=== PATIENT | female | born 1975 | race Caucasian/White ===

== ENCOUNTER 2016-09-21 16:01 | Emergency (ER) | payer OTHER ==
[2016-09-21] MEDS ORDERED: FENTANYL CITRATE INJ/PF 100 MCG/2 ML AMPUL IV ONE (16:24)
[2016-09-21] MEDS ORDERED: PROPOFOL INJ 200 MG/20 ML VIAL IV ONE (16:41)
[2016-09-21] MEDS ORDERED: NORMAL SALINE 1000 ML 1,000 ML IV PRN (16:43)
[2016-09-21] MEDS ORDERED: PROPOFOL 100 ML IV ONE (16:51)
--- NOTE | 2016-09-21 17:19 | ER Document Report ---
ED Seizure - General Chief Complaint: Probable Seizure Stated Complaint: POSSIBLE SEIZURE Notes: Patient is a 41-year-old female, no past medical history, presents after a 1 minute generalized tonic-clonic seizure witnessed by her son. She had a brief postictal period where she was crying. She is complaining of left shoulder pain and feels like it is out of its socket. She denies numbness, tingling, head injury, new medications, fevers, neck stiffness, ataxia or any other injuries. - Related Data Allergies/Adverse Reactions: No Known Allergies Allergy (Verified 04/03/16 09:40) Past Medical History - Social History Smoking Status: Current Every Day Smoker Family History: Reviewed & Not Pertinent - Past Medical History Cardiac Medical History: Denies: Hx Coronary Artery Disease, Hx Heart Attack, Hx Hypertension Pulmonary Medical History: Denies: Hx Asthma, Hx Bronchitis, Hx COPD, Hx Pneumonia Neurological Medical History: Denies: Hx Cerebrovascular Accident, Hx Seizures GI Medical History: Denies: Hx Hepatitis, Hx Hiatal Hernia, Hx Ulcer Musculoskeltal Medical History: Denies Hx Arthritis Infectious Medical History: Denies: Hx Hepatitis Past Surgical History: Denies: Hx Hysterectomy, Hx Mastectomy, Hx Open Heart Surgery, Hx Pacemaker - Immunizations Hx Diphtheria, Pertussis, Tetanus Vaccination: Yes Review of Systems - Review of Systems Notes: REVIEW OF SYSTEMS: CONSTITUTIONAL: Denies fever, chills, or sweats. Denies recent illness. EENT: Denies eye, ear, throat, or mouth pain or symptoms. Denies nasal or sinus congestion. CARDIOVASCULAR: Denies chest pain, syncope. RESPIRATORY: Denies cough, cold, or chest congestion. Denies shortness of breath, difficulty breathing, or wheezing. GASTROINTESTINAL: Denies abdominal pain. Denies nausea, vomiting, or diarrhea. Denies constipation. GENITOURINARY: Denies difficulty urinating, painful urination, burning, frequency, or blood in urine. MUSCULOSKELETAL: +left shoulder pain SKIN: Denies rash or skin lesions. HEMATOLOGIC: Denies easy bruising or bleeding. LYMPHATIC: Denies swollen, enlarged glands. NEUROLOGICAL: +seizure. Denies altered mental status or loss of consciousness. Denies headache. Denies weakness or paralysis or loss of use of either side. Denies problems with gait or speech. Denies sensory or motor loss. PSYCHIATRIC: Denies anxiety or stress or depression. ALL OTHER SYSTEMS REVIEWED AND NEGATIVE. Physical Exam - Vital signs Vitals: Pulse Resp BP Pulse Ox 78 21 H 106/69 98 09/21/16 16:50 09/21/16 16:50 09/21/16 16:50 09/21/16 16:50 BP 135/80, HR 93, Pulse Ox 97%, RR 16 Interpretation: Normal - Notes Notes: PHYSICAL EXAMINATION: GENERAL: Well-appearing, well-nourished. In moderate distress. HEAD: Atraumatic, normocephalic. EYES: Pupils equal round and reactive to light, extraocular movements intact, sclera anicteric, conjunctiva are normal. ENT: nares patent, oropharynx clear without exudates. Moist mucous membranes. NECK: Normal range of motion, supple without lymphadenopathy LUNGS: Breath sounds clear to auscultation bilaterally and equal. No wheezes rales or rhonchi. HEART: Regular rate and rhythm without murmurs ABDOMEN: Soft, nontender, normoactive bowel sounds. No guarding, no rebound. No masses appreciated. EXTREMITIES: Unable to move left shoulder. Left humerus out of glenoid fossa. N /V intact distally. NEUROLOGICAL: Cranial nerves grossly intact. Normal speech, normal gait. Normal sensory, motor, and reflex exams. PSYCH: Normal mood, normal affect. SKIN: Warm, Dry, normal turgor, no rashes or lesions noted. Course - Re-evaluation Re-evalutation: Left posterior shoulder dislocation reduced after procedural sedation using traction countertraction. Neurovascular intact distally. CT head does not show any acute abnormalities and rest of labs were unremarkable to explain acute seizure. Instructed the patient to not drive until cleared by the neurologist. She will follow up with neurology and orthopedics. She will keep her arm in the shoulder immobilizer until seen by orthopedics. - Vital Signs Vital signs: Temp Pulse Resp BP Pulse Ox 75 18 118/64 100 09/21/16 17:35 09/21/16 17:35 09/21/16 17:35 09/21/16 17:35 - Laboratory Result Diagrams: 09/21/16 18:05 09/21/16 18:05 Laboratory results interpreted by me: 09/21/16 09/21/16 18:05 18:05 WBC 14.1 H Seg Neutrophils % 90.4 H Lymphocytes % 5.7 L Absolute Neutrophils 12.7 H Chloride 108 H Procedures - Conscious Sedation Conscious sedation Consent obtained: Yes Indication: Shoulder dislocation. Pt in pain. Last meal: 08:00 Prior complications: Other - None Normal healthy pt.: P1. - ASA Classification Airway Evaluation: Normal anatomy Mallampati Classification: Class 1 Medications administered: Fentanyl, Diprivan Reversal agents: None I personally performed/intraservice time: Sedation, Procedure, 30 min or less Complications: No - Immobilization Left Shoulder Time completed: 17:19 Pre-Proc Neuro Vasc Exam: Normal Immobilizer type: Shoulder immobilizer Performed by: Provider Post-Proc Neuro Vasc Exam: Normal Alignment checked and good: Yes - Joint Reduction/Fracture Care Left Shoulder Time completed: 17:20 Consent obtained: Yes Conscious sedation: Yes Pre-procedure NV exam: Yes - Intact Manipulation comment: Traction-countertraction Post-procedure NV exam: Yes Post-reduction x-ray: Joint reduced Reduction attempts: 1 Complications: No Discharge - Discharge Clinical Impression: Seizure Dislocation of left shoulder joint Qualifiers: Encounter type: initial encounter Qualified Code(s): S43.005A - Unspecified dislocation of left shoulder joint, initial encounter Condition: Good Disposition: HOME, SELF-CARE Additional Instructions: Shoulder Dislocation You've had a shoulder dislocation. Even after the shoulder is put back in place, careful care is needed to prevent further problems. As the shoulder dislocated, injury to the joint itself occurred. This must be allowed to heal. The usual treatment is a shoulder immobilizing sling. If this is your first dislocation, it must be left in place until the doctor allows you to remove it. This is important. Ice pack the shoulder frequently. One of the most important aspects of care for a shoulder dislocation is mobility exercises and strengthening exercises. You'll start these when it's safe to start moving the shoulder joint. Be sure to keep your follow-up appointments. If you develop numbness in the arm or hand, weakness of the hand muscles, arm swelling, or arm discoloration, call the doctor or return immediately. Seizure You have had a seizure. Seizure disorders (epilepsy) of one sort or another affect about one out of 50 people. The seizure occurs because of abnormal electrical activity in the brain. Seizures may be due to drugs and alcohol, strokes, brain injury, or infection. In the most common form of epilepsy, no cause can be found. You will require further evaluation to determine the cause of your seizure, and to determine whether anti-seizure medication is required. This follow-up testing is important, so please call us if you encounter problems with scheduling of tests or appointments. YOU SHOULD NOT DRIVE until released to do so by your physician. The law requires that seizures be reported to the crew car driver's license bureau--a seizure while driving could be catastrophic. Call the doctor if seizures recur, or if you develop new symptoms such as fever, severe headache, stiff neck, confusion or increasing sleepiness, weakness or numbness, or visual problems. Referrals: DENISE MCKEON MD [Primary Care Provider] - Follow up as needed LURDES GANNON MD [ACTIVE STAFF] - Follow up as needed ALISSA ACUNA MD [ACTIVE STAFF] - Follow up as needed
[2016-09-21 18:17] LABS: ABSOLUTE LYMPHOCYTES (AUTO) 0.8 10^3/uL (0.5-4.7); ABSOLUTE MONOCYTES (AUTO) 0.5 10^3/uL (0.1-1.4); ABSOLUTE NEUT (AUTO) 12.7 10^3/uL (1.7-8.2); BASOPHILS % (AUTO) 0.2 % (0-2); EOSINOPHILS % (AUTO) 0.3 % (0-6); HEMATOCRIT 39.7 % (36.0-47.0); HEMOGLOBIN 13.5 g/dL (12.0-15.5); HGB HCT DIFFERENCE 0.8; LYMPHOCYTES % (AUTO) 5.7 % (13-45); MEAN CORPUSCULAR HEMOGLOBIN 29.1 pg (27.0-33.4); MEAN CORPUSCULAR VOLUME 86 fl (80-97); MONOCYTES % (AUTO) 3.4 % (3-13); RED BLOOD COUNT 4.64 10^6/uL (3.72-5.28); SEGMENTED NEUTROPHILS % (AUTO) 90.4 % (42-78); WHITE BLOOD COUNT 14.1 10^3/uL (4.0-10.5)
[2016-09-21 18:41] LABS: ALANINE AMINOTRANSFERASE 41 U/L (9-52); ALBUMIN 3.9 g/dL (3.5-5.0); ALKALINE PHOSPHATASE 92 U/L (38-126); ANION GAP 11 (5-19); ASPARTATE AMINO TRANSFERASE 26 U/L (14-36); BILIRUBIN,TOTAL 0.4 mg/dL (0.2-1.3); BLOOD UREA NITROGEN 12 mg/dL (7-20); CALCIUM 9.4 mg/dL (8.4-10.2); CARBON DIOXIDE 23 mmol/L (22-30); CHLORIDE 108 mmol/L (98-107); CREATININE RESULT 0.58 mg/dL (0.52-1.25); GLUCOSE 107 mg/dL (75-110); MAGNESIUM 2.2 mg/dL (1.6-2.3); POTASSIUM 4.2 mmol/L (3.6-5.0); SODIUM 141.5 mmol/L (137-145); TOTAL PROTEIN 6.5 g/dL (6.3-8.2)
[2016-09-21 18:42] LABS: ALCOHOL < 10 mg/dL (NONE DETECTED)
[2016-09-21 19:00] VITALS: BP 106/71
--- NOTE | 2016-09-22 13:50 | EKG REPORT ---
SEVERITY:- NORMAL ECG - SINUS RHYTHM : Confirmed by: Tanner Kemp 22-Sep-2016 13:49:31
== END 2016-09-21 19:19 | disposition home or self-care (01) ==
LOC: ER 16:01
PROC: 0RSKXZZ Reposition Left Shoulder Joint, External Approach (ICD-10-PCS; principal; 2016-09-21)
DX: S43.005A Unspecified dislocation of left shoulder joint, initial encounter (principal); R56.9 Unspecified convulsions; F17.200 Nicotine dependence, unspecified, uncomplicated; X58.XXXA Exposure to other specified factors, initial encounter
CPT/HCPCS: 23650; 93005; 99284; 36415; 80307; 83735; 84703; 85025; 80053; 73030; 70450; 93010; L3650; J3010; J2704; J7030

== ENCOUNTER 2017-02-14 21:51 | Emergency (ER) | payer OTHER ==
[2017-02-15] MEDS ORDERED: CYCLOBENZAPRINE HCL 10 MG TABLET PO ONE (00:12)
[2017-02-15] MEDS ORDERED: IBUPROFEN 600 MG TABLET PO ONE (00:12)
[2017-02-15] MEDS ORDERED: LIDOCAINE 5% (700 MG) TRANSDERMAL ADH..PATCH TP ONE (00:12)
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
[2017-02-15 00:38] VITALS: BP 104/71
== END 2017-02-15 00:37 | disposition home or self-care (01) ==
LOC: ER 21:51
DX: M54.2 Cervicalgia (principal); S09.90XA Unspecified injury of head, initial encounter; R51 Headache; V49.50XA Passenger injured in collision with unspecified motor vehicles in traffic accident, initial encounter; F17.200 Nicotine dependence, unspecified, uncomplicated
CPT/HCPCS: 99283

== ENCOUNTER 2017-05-02 23:16 | Emergency (ER) | payer OTHER ==
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
[2017-05-03] MEDS ORDERED: HYDROCODONE/ACETAMINOPHEN 5-325 MG TABLET PO ONE (02:31)
[2017-05-03 03:35] VITALS: BP 114/73
--- NOTE | 2017-05-07 12:37 | RADIOLOGY REPORT (SQ) ---
EXAM DESCRIPTION: KNEE RIGHT 4 VIEWS COMPLETED DATE/TIME: 05/03/2017 1:54 am REASON FOR STUDY: FALL COMPARISON: None. LIMITATIONS: None. FINDINGS: CR, right knee, two views: Minimal inferior patellar enthesophyte. Bones, joints, and sof t tissues appear otherwise unremarkable. IMPRESSION: No acute findings. TECHNICAL DOCUMENTATION: JOB ID: [id number] [employer]- All Rights Reserved
--- NOTE | 2017-05-07 12:40 | RADIOLOGY REPORT (SQ) ---
EXAM DESCRIPTION: SHOULDER LEFT 2 OR MORE VIEWS COMPLETED DATE/TIME: 05/03/2017 1:54 am REASON FOR STUDY: FALL COMPARISON: None. LIMITATIONS: None. FINDINGS: CR, left shoulder, three views: Bones, joints, and soft tissues appear intact. IMPRESSION: Intact left shoulder. TECHNICAL DOCUMENTATION: JOB ID: [id number] [employer]- All Rights Reserved
== END 2017-05-03 03:27 | disposition home or self-care (01) ==
LOC: ER 23:16
DX: S83.004A Unspecified dislocation of right patella, initial encounter (principal); W18.30XA Fall on same level, unspecified, initial encounter; Y92.012 Bathroom of single-family (private) house as the place of occurrence of the external cause; G40.909 Epilepsy, unspecified, not intractable, without status epilepticus; F17.200 Nicotine dependence, unspecified, uncomplicated
CPT/HCPCS: 36415; 80177; 99284

== ENCOUNTER → 2017-11-23 | Outpatient (CLI) | payer OTHER ==
[2017-11-23 14:25] LABS: HEMATOCRIT 39.6 % (36.0-47.0); HEMOGLOBIN 13.6 g/dL (12.0-15.5); MEAN CORPUSCULAR HEMOGLOBIN 30.8 pg (27.0-33.4); MEAN CORPUSCULAR HGB CONC 34.5 g/dL (32.0-36.0); MEAN CORPUSCULAR VOLUME 89 fl (80-97); PLATELET COUNT 278 10^3/uL (150-450); RED BLOOD COUNT 4.43 10^6/uL (3.72-5.28); RED CELL DISTRIBUTION WIDTH 13.3 % (11.5-14.0); WHITE BLOOD COUNT 6.7 10^3/uL (4.0-10.5)
[2017-11-23 14:49] LABS: ALANINE AMINOTRANSFERASE 25 U/L (9-52); ALBUMIN 4.3 g/dL (3.5-5.0); ALKALINE PHOSPHATASE 61 U/L (38-126); ANION GAP 10 (5-19); ASPARTATE AMINO TRANSFERASE 20 U/L (14-36); BILIRUBIN,DIRECT 0.5 mg/dL (0.0-0.4); BILIRUBIN,TOTAL 0.6 mg/dL (0.2-1.3); BLOOD UREA NITROGEN 12 mg/dL (7-20); CALCIUM 9.9 mg/dL (8.4-10.2); CARBON DIOXIDE 26 mmol/L (22-30); CHLORIDE 106 mmol/L (98-107); GLUCOSE 84 mg/dL (75-110); SODIUM 141.9 mmol/L (137-145); TOTAL PROTEIN 6.9 g/dL (6.3-8.2)
[2017-11-23 15:06] LABS: FREE T3 3.87 pg/mL (2.77-5.27); FREE T4 (FREE THYROXINE) 1.19 ng/dL (0.78-2.19)
[2017-11-23 15:19] LABS: THYROID STIMULATING HORMONE 1.13 uIU/mL (0.47-4.68)
== END ==
LOC: OD 13:16
PROVIDERS: ATTEND Specialist
DX: G40.909 Epilepsy, unspecified, not intractable, without status epilepticus (principal)
CPT/HCPCS: 36415; 80053; 80177; 84439; 84443; 84481; 85027

== ENCOUNTER 2019-10-27 15:24 | Emergency (ER) | payer OTHER ==
[2019-10-27 15:38] VITALS: BP 129/73
[2019-10-27] MEDS ORDERED: MORPHINE SULFATE 10 MG/ML INJ IM ONE (16:00)
--- NOTE | 2019-10-27 16:20 | ER Document Report ---
ED Medical Screen (RME) - General Chief Complaint: Shoulder Injury Stated Complaint: SHOULDER PAIN Time Seen by Provider: 10/27/19 15:54 Primary Care Provider: LURDES GANNON MD [Primary Care Provider] - Follow up as needed Mode of Arrival: Ambulatory Information source: Patient Notes: 44-year-old female patient with a complaint of left shoulder pain. 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 Patient reports history of shoulder dislocations in the past. Patient with limited range of motion, states she feels like it may be dislocated. Patient unhappy in triage that I am sending her for x-rays as she states that she will not be able to do them. Pain medications ordered. Strong radial pulse. I have greeted and performed a rapid initial assessment of this patient. A comprehensive ED assessment and evaluation of the patient, analysis of test results and completion of the medical decision making process will be conducted by additional ED providers. I have specifically instructed the patient or family members with the patient to immediately return to any nursing staff should anything change in the patient's condition or with their chief complaint. TRAVEL OUTSIDE OF THE [place] IN LAST 30 DAYS: No - Related Data Allergies/Adverse Reactions: No Known Allergies Allergy (Verified 10/27/19 15:52) Home Medications: seizure medication-[place] Past Medical History - Social History Frequency of alcohol use: None Drug Abuse: None - Past Medical History Cardiac Medical History: Denies: Hx Coronary Artery Disease, Hx Heart Attack, Hx Hypertension Pulmonary Medical History: Denies: Hx Asthma, Hx Bronchitis, Hx COPD, Hx Pneumonia Neurological Medical History: Reports: Hx Seizures. Denies: Hx Cerebrovascular Accident Renal/ Medical History: Denies: Hx Peritoneal Dialysis GI Medical History: Denies: Hx Hepatitis, Hx Hiatal Hernia, Hx Ulcer Musculoskeltal Medical History: Denies Hx Arthritis Infectious Medical History: Denies: Hx Hepatitis Past Surgical History: Reports: Hx Section. Denies: Hx Hysterectomy, Hx Mastectomy, Hx Open Heart Surgery, Hx Pacemaker - Immunizations Hx Diphtheria, Pertussis, Tetanus Vaccination: Yes Physical Exam - Vital signs Vitals: Temp Resp BP Pulse Ox 98.5 F 20 129/73 H 100 10/27/19 15:36 10/27/19 15:36 10/27/19 15:36 02/10/20 15:36 Course - Vital Signs Vital signs: Temp Pulse Resp BP Pulse Ox 98.5 F 20 129/73 H 100 10/27/19 15:36 10/27/19 15:36 10/27/19 15:36 10/27/19 15:36 Doctor's Discharge - Discharge Referrals: LURDES GANNON MD [Primary Care Provider] - Follow up as needed
--- NOTE | 2019-10-27 16:29 | RADIOLOGY REPORT (SQ) ---
EXAM DESCRIPTION: SHOULDER LEFT 2 OR MORE VIEWS COMPLETED DATE/TIME: 10/27/2019 4:17 pm REASON FOR STUDY: eval for dislocation COMPARISON: Radiograph of the left shoulder from 05/03/2017. NUMBER OF VIEWS: Three views. TECHNIQUE: Internal rotation, external rotation, and Y view images acquired of the left shoulder. LIMITATIONS: None. FINDINGS: MINERALIZATION: Normal. BONES: No acute fracture. JOINTS: No dislocation. VISUALIZED LUNGS AND RIBS: No pneumothorax or rib fracture. SOFT TISSUES: No radiopaque foreign body. OTHER: No other finding. IMPRESSION: No acute osseous abnormality of the left shoulder. TECHNICAL DOCUMENTATION: JOB ID: [id number] 2010 [employer]- All Rights Reserved Reading location - IP/workstation name: [email or web address]
--- NOTE | 2019-10-27 17:19 | ER Document Report ---
ED Extremity Problem, Upper - General Chief Complaint: Shoulder Injury Stated Complaint: SHOULDER PAIN Time Seen by Provider: 10/27/19 15:54 Primary Care Provider: LURDES GANNON MD [Primary Care Provider] - Follow up as needed Mode of Arrival: Ambulatory Notes: HPI: 44-year-old female who states acute pain to the left anterior lateral shoulder when she was lifting something at work. She was attempting to put something on a shelf. Patient has a history of a shoulder dislocation to this arm secondary to a seizure in the past. She denies pain or injury to any other location. She denies any cough or shortness of breath. No chest pain or palpitations. No pain or injury to any other extremity. ROS: See HPI All other review of systems reviewed and otherwise negative Reviewed vital signs and nursing note as charted by RN. PHYSICAL EXAM: CONSTITUTIONAL: Patient does appear to be in pain HEAD: Normocephalic; atraumatic ENT: Normal nose; no rhinorrhea; moist mucous membranes; pharynx without lesions noted NECK: Supple without meningismus; non-tender CARD: Regular rate and rhythm; no murmurs; symmetric distal pulses RESP: Normal chest excursion without splinting or tachypnea; breath sounds clear and equal bilaterally ABD/GI: Normal bowel sounds; non-distended; soft, non-tender BACK: The back appears normal and is non-tender to palpation EXT: Left shoulder held at side of arm. No obvious swelling or obvious deformity to the left shoulder. Patient has exquisite pain and is currently crying holding the arm. There is no tenderness to the humerus, elbow, forearm, wrist, or hand. Normal distal pulses to the left wrist. No tenderness to the scapula or clavicle region SKIN: No acute lesions noted NEURO: N/V intact with good left cloud physicist with excellent distal pulses PSYCH: The patient's mood and manner are appropriate. Grooming and personal hygiene are appropriate. TRAVEL OUTSIDE OF THE [place] IN LAST 30 DAYS: No - Related Data Allergies/Adverse Reactions: No Known Allergies Allergy (Verified 10/27/19 15:52) Home Medications: seizure medication-[place] Past Medical History - General Information source: Patient - Social History Smoking Status: Unknown if Ever Smoked Frequency of alcohol use: None Drug Abuse: None Family History: Reviewed & Not Pertinent Patient has suicidal ideation: No Patient has homicidal ideation: No - Past Medical History Cardiac Medical History: Denies: Hx Coronary Artery Disease, Hx Heart Attack, Hx Hypertension Pulmonary Medical History: Denies: Hx Asthma, Hx Bronchitis, Hx COPD, Hx Pneumonia Neurological Medical History: Reports: Hx Seizures. Denies: Hx Cerebrovascular Accident Renal/ Medical History: Denies: Hx Peritoneal Dialysis GI Medical History: Denies: Hx Hepatitis, Hx Hiatal Hernia, Hx Ulcer Musculoskeletal Medical History: Denies Hx Arthritis Infectious Medical History: Denies: Hx Hepatitis Past Surgical History: Reports: Hx Section. Denies: Hx Hysterectomy, Hx Mastectomy, Hx Open Heart Surgery, Hx Pacemaker - Immunizations Hx Diphtheria, Pertussis, Tetanus Vaccination: Yes Physical Exam - Vital signs Vitals: Temp Resp BP Pulse Ox 98.5 F 20 129/73 H 100 10/27/19 15:36 10/27/19 15:36 10/27/19 15:36 10/27/19 15:36 Course - Re-evaluation Re-evalutation: 10/27/19 17:19 Patient was taken to x-ray. No obvious fractures appreciated. Rotator cuff injury is possible. Given the degree of pain we will place the patient into a sling and do repeat x-rays. 10/27/19 17:58 Given the patient's pain with the prolonged time before initial x-ray, I did put the patient in the sling and repeat the x-ray to make sure that there was no intermittent subluxation/dislocation. Repeat x-ray still shows to be unremarkable with no dislocations or fractures present. Patient's pain is improved in the sling. No change to the distal arm exam. Still no anterior posterior rib pain, scapular pain, or clavicle pain. Still excellent distal pulses. Given the above history and physical we will provide the patient a short course of pain medications with strict return precautions and follow-up with orthopedics and discharge the patient in a sling. 10/27/19 18:14 Patient's pain is improved. Still excellent distal pulses and strength. Patient will be discharged home with strict return precautions, course of pain medications, and orthopedic follow-up. - Vital Signs Vital signs: Temp Pulse Resp BP Pulse Ox 98.5 F 20 129/73 H 100 10/27/19 15:36 10/27/19 15:36 10/27/19 15:36 10/27/19 15:36 Discharge - Discharge Clinical Impression: Left shoulder pain Qualifiers: Chronicity: acute Qualified Code(s): M25.512 - Pain in left shoulder Condition: Good Disposition: HOME, SELF-CARE Additional Instructions: Come back immediately for any increased pain, change in location or quality of pain, swelling or discoloration of the arm, tingling or weakness of the hand or arm, or any other acute problems. Please take 600 mg of ibuprofen in addition to the pain medications as needed and please follow-up with the documentation improvement specialist as discussed. Prescriptions: Oxycodone HCl/Acetaminophen [Percocet 5-325 mg Tablet] 1 tab PO ASDIR PRN #10 tablet PRN Reason: Referrals: LURDES GANNON MD [Primary Care Provider] - Follow up as needed
--- NOTE | 2019-10-27 18:09 | RADIOLOGY REPORT (SQ) ---
EXAM DESCRIPTION: SHOULDER LEFT 1 VIEW COMPLETED DATE/TIME: 10/27/2019 5:36 pm REASON FOR STUDY: 35; pain COMPARISON: Earlier exam same date NUMBER OF VIEWS: One view. TECHNIQUE: Internal rotation, images acquired of the left shoulder. LIMITATIONS: None. FINDINGS: Similar appearance of posterior glenohumeral subluxation on this single frontal projection . IMPRESSION: Similar appearance of posterior glenohumeral subluxation on this single frontal projecti on. TECHNICAL DOCUMENTATION: JOB ID: [id number] 2010 [employer]- All Rights Reserved Reading location - IP/workstation name: [email or web address]
[2019-10-27] MEDS ORDERED: DIAZEPAM 5 MG TABLET PO ONE (18:14)
[2019-10-27] MEDS ORDERED: OXYCODONE-ACETAMINOPHEN 5-325 MG TABLET PO ONE (18:14)
== END 2019-10-27 19:03 | disposition home or self-care (01) ==
LOC: ER 15:24
DX: M25.512 Pain in left shoulder (principal); X50.9XXA Other and unspecified overexertion or strenuous movements or postures, initial encounter; Y99.0 Civilian activity done for income or pay
CPT/HCPCS: 99283; 96372; 73020; 73030; J2270